=== PATIENT | male | born 1980 | race Hispanic/Latino ===

== ENCOUNTER 2021-03-29 20:49 | Emergency (ER) | payer OTHER ==
[~2021-03-29] VITALS: Ht 170.2 cm; Wt 85.3 kg
[2021-03-29] MEDS ORDERED: ONDANSETRON HCL INJ 2MG/ML 2ML 2 MG/ML VIAL IV STA (21:37)
[2021-03-29] MEDS ORDERED: KETOROLAC TROMETHAMINE 30 MG/ML VIAL IV STA (21:37)
[2021-03-29] MEDS ORDERED: KETOROLAC TROMETHAMINE 30 MG/ML VIAL ONE (22:03)
[2021-03-29] MEDS ORDERED: SODIUM CHLORIDE 0.9% 500ML 500 ML ONE (22:03)
[2021-03-29] MEDS ORDERED: ONDANSETRON HCL INJ 2MG/ML 2ML 2 MG/ML VIAL ONE (22:03)
[2021-03-29] MEDS ORDERED: CIPRO500 MG PO (22:57)
[2021-03-29] MEDS ORDERED: FLAGYL500 MG PO (22:57)
[2021-03-29] MEDS ORDERED: METRONIDAZOLE 500 MG TAB PO ONE (23:00)
[2021-03-29] MEDS ORDERED: PIPERACILLIN/TAZOBACTAM 3.375 GM in SODIUM CHLORIDE 0.9% 50ML 50 ML IV ONE (23:00)
[2021-03-29] MEDS ORDERED: SODIUM CHLORIDE 0.9% 100 ML ONE (23:05)
[2021-03-29] MEDS ORDERED: PIPERACILLIN/TAZOBACTAM SOD 2.25 GM VIAL ONE (23:05)
[2021-03-29] MEDS ORDERED: METRONIDAZOLE 500MG/NS 100ML 100 ML IV ONE (23:05)
[2021-03-30] MEDS ORDERED: METRONIDAZOLE 500MG/NS 100ML 100 ML IV ONE (00:15)
== END 2021-03-30 00:17 | disposition home or self-care (01) ==
LOC: FSED 21:37
DX: R10.32 Left lower quadrant pain (principal); K57.32 Diverticulitis of large intestine without perforation or abscess without bleeding
CPT/HCPCS: 74176; 80048; 80076; 81003; 85025; 99284; J1885; J2405; J2543; J7040; J7050